=== PATIENT | female | born 1995 | race Caucasian/White ===

== ENCOUNTER 2016-12-09 00:27 | Inpatient (IN) | payer OTHER ==
[~2016-12-09] VITALS: Ht 172.7 cm; Wt 57.7 kg
[2016-12-09] VITALS (8 sets, daily range): BP systolic 101–148; BP diastolic 53–93; PULSE 60–79; TEMP 36.7–37; O2SAT 96–100; Ht 172.7 cm; Wt 57.7 kg
[~2016-12-09 00:27] MED LIST: ACET325T96 PO; BCPILLS PO; IBUP-1277 PO; UNKNOWN BP MED PO
--- NOTE | 2016-12-09 01:14 | EMERGENCY ROOM VISIT NOTE ---
History Report prepared by Nyla: Lita Camejo Under the Supervision of: Dr. Marianna Miles D.O. First contact with patient: 00:36 Chief Complaint: PALPITATIONS Stated Complaint: DIZZY,TIRED HEART,PALP History of Present Illness The patient is a 21 year old female who presents to the Emergency Room with complaints of a near syncopal episode that occurred prior to arrival. She currently rates her discomfort as a 3/10 in severity. The patient states that for the past three years she has had a history of hypertension, noting her father additionally has a history of hypertension. She states that this evening she drank three alcoholic beverages this evening and then was inline to for a bar. The patient states that she then blacked out and cannot remember the subsequent events. The patient's friends state that the patient's eyes rolled back in her head, she became pale, and she began gasping for air. The patient states that she remembers clutching her chest, but she cannot remember chest pain. The patient's friends deny the patient having any full loss of consciousness. The patient states that she now feels that her heart is tired. She states that she has had palpitations in the past, but states that her feeling in her heart feels different. The patient states that it feels like her heart ran a marathon, but she did not. The patient states that she had palpitations last evening. She denies having any warning sign prior to the episode this evening. The patient states that she has been feeling exhausted since the event. She states that it feels that her heart sank. The patient denies any history of syncopal episode. The patient's friends state that the patient's episode lasted 3-5 minutes this evening. They state that the patient did not talk for those 3-5 minutes, but then wanted to go home after the incident. The patient states that her doctors are unsure why she has hypertension at a young age. She states that she is on Lisinopril. The patient states that she has worn halter-monitors in the past. 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 The patient states that she has felt exhausted this week. She denies any nausea vomiting, abdominal pain, or diaphoresis. The patient states that her last normal menstrual cycle was one month ago and states that she is on control. Source of History: patient, friend Onset: prior to arrival Position: other (global) Symptom Intensity: 11/24 Quality: other (near syncopal episode) Associated Symptoms: No LOC, No abdominal pain, No diaphoresis, No nausea, No vomiting Note: Associated symptoms: blacked out, gasping for air, palpitations, heart feels tired. Review of Systems See HPI for pertinent positives & negatives. A total of 10 systems reviewed and were otherwise negative. Past Medical & Surgical Medical Problems: (1) Dyspnea (2) Hypertension Family History Cancer Hypertension Social History Smoking Status: Never Smoker Alcohol Use: occasionally Drug Use: none Marital Status: single Housing Status: lives with roommate Occupation Status: [employer] student Current/Historical Medications Scheduled Lisinopril (Prinivil), 10 MG PO DAILY Norethin Acet & Estrad-Fe (Minastrin 24 ), 1 TAB PO DAILY Spironolactone (Aldactone), 25 MG PO BID Allergies Coded Allergies: [place] (Verified Allergy, Intermediate, SWOLLEN FACE, 12/09/16) Physical Exam Vital Signs Date Time Temp Pulse Resp B/P Pulse Ox O2 Delivery O2 Flow Rate FiO2 12/09/16 02:25 69 16 138/98 97 Room Air 12/09/16 00:50 96 Room Air 12/09/16 00:49 65 12/09/16 00:29 36.6 70 18 159/111 99 Room Air Physical Exam HEENT: Head - normocephalic and atraumatic Pupils are equal, round, and reactive to light. Extraocular eye muscles are intact, and sclera are anicteric. Nose - moist nasal mucosa without discharge. Mouth - moist buccal mucosa. Oropharynx is nonerythematous and there is no tonsillar exudate or edema noted. Neck: Supple; no JVD, nuchal rigidity, cervical lymphadenopathy, or auscultated bruits. Heart: Regular rate and rhythm. There is a normal S1 and S2 with no murmurs, clicks, or gallops appreciated. Lungs: Clear to auscultation bilaterally with no wheezes, rales, or rhonchi. Abdomen: Soft, completely nontender, nondistended, with good bowel sounds. There are no palpable pulsatile masses or hepatosplenomegaly. There is no guarding, rigidity, or rebound noted. Extremities: No evidence of cyanosis, clubbing, or edema. There are easily palpable peripheral pulses. Skin: warm and dry with good turgor and no rashes. Medical Decision & Procedures ER Provider Diagnostic Interpretation: Chest one view x-ray interpreted by me: no cardiomegaly, no pulmonary infiltrates or effusions. Laboratory Results 12/09/16 01:08 Red Blood Count 4.56, Mean Corpuscular Volume 90.6, Mean Corpuscular Hemoglobin 33.1, Mean Corpuscular Hemoglobin Concent 36.6, Mean Platelet Volume 9.4, Neutrophils (%) (Auto) 50.0, Lymphocytes (%) (Auto) 38.7, Monocytes (%) (Auto) 6.7, Eosinophils (%) (Auto) 3.7, Basophils (%) (Auto) 0.6, Neutrophils # (Auto) 3.54, Lymphocytes # (Auto) 2.73, Monocytes # (Auto) 0.47, Eosinophils # (Auto) 0.26, Basophils # (Auto) 0.04 Test 12/09/16 01:08 12/09/16 01:20 12/09/16 01:26 White Blood Count 7.06 K/uL (4.8-10.8) Red Blood Count 4.56 M/uL (4.2-5.4) Hemoglobin 15.1 g/dL (12.0-16.0) Hematocrit 41.3 % (37-47) Mean Corpuscular Volume 90.6 fL (80-100) Mean Corpuscular Hemoglobin 33.1 pg (25-34) Mean Corpuscular Hemoglobin Concent 36.6 g/dl (32-36) Platelet Count 203 K/uL (130-400) Mean Platelet Volume 9.4 fL (7.4-10.4) Neutrophils (%) (Auto) 50.0 % Lymphocytes (%) (Auto) 38.7 % Monocytes (%) (Auto) 6.7 % Eosinophils (%) (Auto) 3.7 % Basophils (%) (Auto) 0.6 % Neutrophils # (Auto) 3.54 K/uL (1.4-6.5) Lymphocytes # (Auto) 2.73 K/uL (1.2-3.4) Monocytes # (Auto) 0.47 K/uL (0.11-0.59) Eosinophils # (Auto) 0.26 K/uL (0-0.5) Basophils # (Auto) 0.04 K/uL (0-0.2) RDW Standard Deviation 40.2 fL (36.4-46.3) RDW Coefficient of Variation 12.1 % (11.5-14.5) Immature Granulocyte % (Auto) 0.3 % Immature Granulocyte # (Auto) 0.02 K/uL (0.00-0.02) D-Dimer < 190 ug/L FEU (0-500) Total Bilirubin 0.9 mg/dl (0.2-1) Aspartate Amino Transf (AST/SGOT) 18 U/L (15-37) Alanine Aminotransferase (ALT/SGPT) 19 U/L (12-78) Alkaline Phosphatase 63 U/L (45-117) Total Creatine Kinase 92 U/L (26-192) Creatine Kinase MB 0.8 ng/ml (0.5-3.6) Creatine Kinase MB Ratio 0.9 (0-3.0) Troponin I < 0.015 ng/ml (0-0.045) Total Protein 8.0 gm/dl (6.4-8.2) Albumin 4.2 gm/dl (3.4-5.0) Globulin 3.8 gm/dl (2.5-4.0) Albumin/Globulin Ratio 1.1 (0.9-2) Thyroid Stimulating Hormone (TSH) 2.060 uIu/ml (0.300-4.500) Ethyl Alcohol mg/dL 177.0 mg/dl (0-3) Urine Color YELLOW Urine Appearance CLEAR (CLEAR) Urine pH 5.5 (4.5-7.5) Urine Specific [place] 1.003 (1.000-1.030) Urine Protein NEG (NEG) Urine Glucose (UA) NEG (NEG) Urine Ketones NEG (NEG) Urine Occult Blood NEG (NEG) Urine Nitrite NEG (NEG) Urine Bilirubin NEG (NEG) Urine Urobilinogen NEG (NEG) Urine Leukocyte Esterase NEG (NEG) Urine Test NEG (NEG) Laboratory results per my review. Medications Administered Medications (Trade) Dose Ordered Sig/Jermaine Route Start Time Stop Time Status Last Admin Dose Admin Potassium Chloride (Klor-Con M10) 40 meq NOW STAT PO 12/09/16 03:29 12/09/16 03:43 DC 12/09/16 03:53 40 MEQ ECG Indication: palpitations, syncope Rate (beats per minute): 71 Rhythm: normal sinus Findings: no acute ischemic change, no ectopy ED Course 0038: Past medical records reviewed. The patient was evaluated in room B7. A complete history and physical exam was performed. A twelve-lead EKG was obtained as described above. The patient was observed on the banana carrier and pulse oximeter. She had chest x-ray as described above. 0246: I reevaluated the patient and she is resting comfortably. I discussed the exam findings with her and I discussed the treatment plan. She verbalized complete understanding and agreement. She will be evaluated for further treatment. 0313: I discussed the patients case with MARIAELENA Sood. He is going to evaluate the patient for further treatment. Medical Decision The patient is a 21 year old female who presents to the ED with a near syncopal episode. Differential diagnosis includes cardiac dysrhythmia, near syncope, seizure, alcohol intoxication, hypoglycemia. Lab interpretation: alcohol 177, urinalysis negative, normal TSH, normal LFTs, glucose 80, cardiac enzyme negative, normal renal function, no leukocytosis, stable H&H, d-dimer less than 190. The patient presents to the emergency department after having a very sudden onset of chest pain and shortness of breath and that a near syncopal event. The patient's symptoms were quite dramatic. She gasped for air and clutched her chest complaining of chest pain. She then nearly passed out. The patient does have history of hypertension. I was concerned about the possibility of cardiac dysrhythmia. The patient was not hypoxic or tachycardic. D-dimer was negative. I discussed the case with the [facility] hospitalist and they will evaluate for further management. Consults Time Called: [phone] Consulting Physician: MARIAELENA Sood Returned Call: [phone] I discussed the patients case with MARIAELENA Sood. He is going to evaluate the patient for further treatment. Impression Primary Impression: Near syncope Additional Impressions: Atypical chest pain Palpitations Dyspnea Scribe Attestation The scribe's documentation has been prepared under my direction and personally reviewed by me in its entirety. I confirm that the note above accurately reflects all work, treatment, procedures, and medical decision making performed by me. Departure Information Dispostion Being Evaluated By Hospitalist Referrals [facility] (PCP) Problem Qualifiers
[2016-12-09] MEDS ORDERED: NORE1CHW11 PO (01:16)
[2016-12-09] MEDS ORDERED: SPIR25TA PO (01:16)
[2016-12-09] MEDS ORDERED: LISI10TA PO (01:16)
[2016-12-09 01:19] LABS: BASO % 0.6 %; BASO ABS # 0.04 K/uL (0-0.2); COMPLETE YES; EOS % 3.7 %; HEMATOCRIT 41.3 % (37-47); IG% 0.3 %; LYMPH % 38.7 %; LYMPH ABS # 2.73 K/uL (1.2-3.4); MEAN CELL VOLUME 90.6 fL (80-100); MEAN CORPUSCULAR HEMOGLOBIN 33.1 pg (25-34); MEAN CORPUSCULAR HGB CONC 36.6 g/dl (32-36); MEAN PLATELET VOLUME 9.4 fL (7.4-10.4); MONO % 6.7 %; PLATELET COUNT 203 K/uL (130-400); RED BLOOD COUNT 4.56 M/uL (4.2-5.4); WHITE BLOOD COUNT 7.06 K/uL (4.8-10.8)
[2016-12-09 01:30] LABS: URINE APPEARANCE CLEAR (CLEAR); URINE BILIRUBIN NEG (NEG); URINE COLOR YELLOW; URINE NITRITE NEG (NEG); URINE PH 5.5 (4.5-7.5); URINE SPECIFIC GRAVITY 1.003 (1.000-1.030); UROBILINOGEN NEG (NEG)
[2016-12-09 01:40] LABS: ALT/SGPT 19 U/L (12-78); AST/SGOT 18 U/L (15-37); BLOOD UREA NITROGEN 8 mg/dl (7-18); BUN/CREATININE RATIO 13.2 (10-20); CALCIUM 8.8 mg/dl (8.5-10.1); CARBON DIOXIDE 25 mmol/L (21-32); CHLORIDE 107 mmol/L (98-107); CREATININE 0.64 mg/dl (0.60-1.20); GLUCOSE 80 mg/dl (70-99); MAGNESIUM 2.2 mg/dl (1.8-2.4); POTASSIUM 3.4 mmol/L (3.5-5.1); SODIUM 142 mmol/L (136-145)
[2016-12-09 01:44] LABS: MANUAL MICROSCOPIC REQUIRED? NO; REVIEW REQ? NO
[2016-12-09 01:50] LABS: ALB/GLOB RATIO 1.1 (0.9-2); ALKALINE PHOSPHATASE 63 U/L (45-117); CKMB/CK RATIO 0.9 (0-3.0)
[2016-12-09] MEDS ORDERED: POTASSIUM CHLORIDE 10 MEQ TABCR PO STA (03:29)
[2016-12-09] MEDS ORDERED: SPIRONOLACTONE 25 MG TAB PO STA (03:44)
[2016-12-09] MEDS ORDERED: ZOLPIDEM TARTRATE 5 MG TAB PO PRN (03:45)
[2016-12-09] MEDS ORDERED: ACETAMINOPHEN 325 MG TAB PO PRN (03:45)
--- NOTE | 2016-12-09 03:57 | History and Physical ---
History & Physical Date & Time of Service: Dec 09, 2016 at 03:46 Chief Complaint: Dizzy,Tired Heart,Palp Primary Care Physician: No Doctor, Assigned History of Present Illness Source: patient, friend The patient is a 21-year-old female who presents emergency department with complaint of a near syncopal episode 3-5 minute duration that occurred while standing in line for after having had 3 alcoholic beverages. She has a known history of hypertension for which she takes spironolactone 25 mg by mouth twice a day and lisinopril 10 mg by mouth daily. She does not remember the event itself, however, her friends her with her noted that she touched her chest for 3 -5 minute interval, did not talk to them during the interval time, and when the event was over just asked that they take her home. She has not had symptoms like this in the past. She follows with a litharge mill operator in [place], who she saw 2 weeks ago. She has not had any recent illnesses or sick exposures. She reports that she drank a lot of water today, much more than usual, due to her foreknowledge of going out tonight. Past Medical/Surgical History Medical Problems: (1) Hypertension Status: Chronic Family History Cancer Hypertension Social History Smoking Status: Never Smoker Smokeless Tobacco Use: No Alcohol Use: socially Drug Use: none Marital Status: single Occupational Status: [employer] student Multi-Drug Resistant Organisms History of MDRO: No Allergies Coded Allergies: [place] (Verified Allergy, Intermediate, SWOLLEN FACE, 12/09/16) Home Medications Scheduled Lisinopril (Prinivil), 10 MG PO DAILY Norethin Acet & Estrad-Fe (Minastrin 24 ), 1 TAB PO DAILY Spironolactone (Aldactone), 25 MG PO BID Review of Systems The patient denies chest pain, cough, lower extremity swelling, vision change, hearing change, sore throat, fevers, chills, sweats, weight change, nausea, vomiting, abdominal pain, pelvic pain, blood in urine or stool, dysuria, urinary frequency or urgency, lightheadedness, dizziness, headache, rash, abnormal bruising or bleeding, imbalance, focal or generalized weakness, numbness or tingling in arms or legs, arthralgias or myalgias, back or neck pain , night sweats, or allergy symptoms. The review of systems is otherwise negative other than for that already noted above, and at least 10 systems have been reviewed. Physical Exam Vital Signs Date Time Temp Pulse Resp B/P Pulse Ox O2 Delivery O2 Flow Rate FiO2 12/09/16 02:25 69 16 138/98 97 Room Air 12/09/16 00:50 96 Room Air 12/09/16 00:49 65 12/09/16 00:29 36.6 70 18 159/111 99 Room Air The patient is awake, well-developed and adequately nourished, alert and oriented 3, normocephalic and atraumatic, lying in bed and in no acute distress. HEENT--PERRL, EOMI, mucous membranes and oropharynx mildly dry. Neck--supple, no JVD or bruits, thyroid normal, trachea midline, no adenopathy. Heart--normal S1 and S2, no extra beats, no murmurs, rubs or gallops. Lungs--clear bilaterally with good air movement, no respiratory distress, no accessory muscle use. Abdomen--normal bowel sounds and soft, nontender and nondistended, no hernias or masses, no organomegaly. Extremities--no cyanosis, clubbing or edema. There are good distal pulses b/l. Dermatologic--normal skin turgor, normal color, warm and dry, no abnormal lymph nodes, no rash. Neurologic--cranial nerves II through XII grossly intact, motor and sensory examination normal. Rheumatologic--normal range of motion, nontender, muscles and joints. Psychiatric--normal affect. Diagnostics Laboratory Results Results Past 24 Hours Test 12/09/16 01:08 12/09/16 01:20 12/09/16 01:26 Range/Units White Blood Count 7.06 4.8-10.8 K/uL Red Blood Count 4.56 4.2-5.4 M/uL Hemoglobin 15.1 12.0-16.0 g/dL Hematocrit 41.3 37-47 % Mean Corpuscular Volume 90.6 80-100 fL Mean Corpuscular Hemoglobin 33.1 25-34 pg Mean Corpuscular Hemoglobin Concent 36.6 32-36 g/dl Platelet Count 203 130-400 K/uL Mean Platelet Volume 9.4 7.4-10.4 fL Neutrophils (%) (Auto) 50.0 % Lymphocytes (%) (Auto) 38.7 % Monocytes (%) (Auto) 6.7 % Eosinophils (%) (Auto) 3.7 % Basophils (%) (Auto) 0.6 % Neutrophils # (Auto) 3.54 1.4-6.5 K/uL Lymphocytes # (Auto) 2.73 1.2-3.4 K/uL Monocytes # (Auto) 0.47 0.11-0.59 K/uL Eosinophils # (Auto) 0.26 0-0.5 K/uL Basophils # (Auto) 0.04 0-0.2 K/uL RDW Standard Deviation 40.2 36.4-46.3 fL RDW Coefficient of Variation 12.1 11.5-14.5 % Immature Granulocyte % (Auto) 0.3 % Immature Granulocyte # (Auto) 0.02 0.00-0.02 K/uL Sodium Level 142 136-145 mmol/L Potassium Level 3.4 3.5-5.1 mmol/L Chloride Level 107 98-107 mmol/L Carbon Dioxide Level 25 21-32 mmol/L Anion Gap 10.0 3-11 mmol/L Blood Urea Nitrogen 8 7-18 mg/dl Creatinine 0.64 0.60-1.20 mg/dl Est Creatinine Clear Calc Drug Dose 125.6 ml/min Estimated GFR () 146.8 Estimated GFR (Non- 126.7 BUN/Creatinine Ratio 13.2 10-20 Random Glucose 80 70-99 mg/dl Calcium Level 8.8 8.5-10.1 mg/dl Magnesium Level 2.2 1.8-2.4 mg/dl Total Bilirubin 0.9 0.2-1 mg/dl Aspartate Amino Transf (AST/SGOT) 18 15-37 U/L Alanine Aminotransferase (ALT/SGPT) 19 12-78 U/L Alkaline Phosphatase 63 45-117 U/L Total Creatine Kinase 92 26-192 U/L Creatine Kinase MB 0.8 0.5-3.6 ng/ml Creatine Kinase MB Ratio 0.9 0-3.0 Troponin I < 0.015 0-0.045 ng/ml Total Protein 8.0 6.4-8.2 gm/dl Albumin 4.2 3.4-5.0 gm/dl Globulin 3.8 2.5-4.0 gm/dl Albumin/Globulin Ratio 1.1 0.9-2 Thyroid Stimulating Hormone (TSH) 2.060 0.300-4.500 uIu/ml Ethyl Alcohol mg/dL 177.0 0-3 mg/dl Urine Color YELLOW Urine Appearance CLEAR CLEAR Urine pH 5.5 4.5-7.5 Urine Specific [place] 1.003 1.000-1.030 Urine Protein NEG NEG Urine Glucose (UA) NEG NEG Urine Ketones NEG NEG Urine Occult Blood NEG NEG Urine Nitrite NEG NEG Urine Bilirubin NEG NEG Urine Urobilinogen NEG NEG Urine Leukocyte Esterase NEG NEG Urine Test NEG NEG EKG EKG shows normal sinus rhythm with sinus arrhythmia at 71 bpm, right superior axis deviation, no acute ST-T changes. Impression Assessment and Plan Near syncope--symptoms are most consistent with that of an abnormal heart rhythm. She'll be admitted to telemetry unit, for serial cardiac enzymes, cardiac rhythm monitoring and a 2-D echocardiogram with Dopplers. The patient is also on oral contraceptives. I have asked the ED to add a d-dimer to present labs, and if elevated, will necessitate a CT angiography to assess for PE. Aldosteronism/hypertension/hypokalemia--potassium level upon entry is 3.4, and magnesium 2.2. Hold lisinopril 10 mg by mouth daily. We'll give potassium chloride 40 mEq by mouth now, and spironolactone 50 mg by mouth now. We will adjust her baseline dose of spironolactone from 25 mg by mouth twice a day to 50 mg by mouth twice a day. We'll also place on normal saline with potassium chloride 20 mEq at 100 ML's per hour for 1 L. We'll repeat BMP and magnesium level in 8 hours. Level of Care Telemetry Advanced Directives Existing Advance Directive: No Existing Living Will: No Existing Power of Salon Designer: No Resuscitation Status FULL RESUSCITATION VTE Prophylaxis VTE Risk Assessment Done? Y/N: Yes Risk Level: Low Social Service Consult None Apply
[2016-12-09] MEDS: NSS + 20MEQ KCL 1000ML 1,000 ML IV SCH ×2 (04:42→14:21)
--- NOTE | 2016-12-09 07:53 | DIAGNOSTIC IMAGING REPORT ---
SINGLE VIEW CHEST CLINICAL HISTORY: Palpitations. Fatigue. FINDINGS: An AP, portable, upright chest radiograph is obtained. No prior studies are available for comparison at the time of dictation. The examination is mildly degraded by portable technique and patient rotation. The cardiomediastinal silhouette is unremarkable. The lungs and pleural spaces are clear. No pneumothorax is seen. The bony thorax is grossly intact. IMPRESSION: No active disease in the chest. Electronically signed by: Duane Stone M.D. 12/09/2016 7:52 AM Dictated Date/Time: 12/09/2016 7:51 AM
[2016-12-09] MEDS: BCP'S~ORDER AWAITING ACTION SCH ×2 (08:00→16:00)
[2016-12-09] MEDS ORDERED: ASPIRIN 81 MG ECTAB PO SCH (09:00)
[2016-12-09] MEDS ORDERED: INFLUENZA ADMINISTRATION CHARGE ONE (10:15)
[2016-12-09] MEDS ORDERED: INFLUENZA VIRUS QUAD VACCINE 0.5 ML SYR IM. ONE (10:15)
[2016-12-09 11:41] LABS: BUN/CREATININE RATIO 14.1 (10-20); CALCIUM 8.5 mg/dl (8.5-10.1); CREATININE 0.71 mg/dl (0.60-1.20); MAGNESIUM 1.9 mg/dl (1.8-2.4); POTASSIUM 4.2 mmol/L (3.5-5.1)
--- NOTE | 2016-12-09 13:06 | CARDIOLOGY CONSULTATION ---
DATE OF CONSULTATION: 12/09/2016 DATE OF CONSULTATION: 12/09/2016. REQUESTING: Dr. Day. INFORMATION TECHNOLOGY TECHNICIAN: Loco Haley D.O., [facility]. REASON FOR CONSULTATION: Possible syncopal episode. Dear Dr. Day, As you know, she is a very pleasant 21-year-old female who notes that the age of 19 she was diagnosed with hypertension. She is unaware whether she has hyperaldosteronism and neither was her mother when I talked to her by phone but given the fact she has low potassium and she is on spironolactone would suggest that as a diagnosis. I did inquire as to whether she had extensive workup and the mom describes she had a workup with pediatric nephrology and now sees an adult director of women's services in [place]. She notes yesterday was a friend's birthday. She tries to stay well hydrated. She notes she constantly feels thirsty though and she notes on the day that she is going to go out she tends not to take her blood pressure medication. She notes she had been drinking a moderate amount, her blood alcohol level when she came to the Emergency Room was 0.177. She notes she was standing in line with her friends, all of sudden without any significant prodrome her eyes rolled in the back of her head. What is interesting is that she did not lose postural tone, she did not fall to the floor, her friends were with her, she did not have any seizure like activity according to her friends and then the symptoms completely resolved. She remembers everything that happened up until the event and she remembers everything that happened after the event. There was no loss of bowel or bladder function. There was no biting her tongue. She is unaware of any palpitations before the episode. She denied any tunnel vision, nauseousness, queasiness to suggest neurocardiogenic syncope. She went home and after some concern by her friends and her mother she came to the Emergency Room. Her blood pressure was very high as she had not taken her medications. She describes earlier in the week having an episode where she was sitting and she sort of describes a sensation in her chest where someone was squeezing an empty ketchup bottle. She also describes a sensation where she feels like her heart sort of drops in her chest and she described that yesterday as well. She denies any chest pain, chest pressure, chest heaviness with normal activity. She is an avid runner running 2-4 miles and is able to do this without any issues. She denies any previous episodes of syncope. She notes she might have a recent illnesses, but outside of that she feels well. She denies any bleeding, bruising, dark stools, black stools, PND, orthopnea. She denies any significant shortness of breath with activity and describes her functional capacity as stable. The rest of review of systems otherwise negative. PAST MEDICAL HISTORY: Hypertension, likely hyperaldosteronism. FAMILY HISTORY: Her dad has hypertension, but there is no family history of sudden cardiac or unexplained car accidents or drowning. SOCIAL HISTORY: She is a lifetime nonsmoker. She does consume alcohol socially. She is a senior at [employer]. She denies any use of Sudafed, Afrin nasal spray, cocaine or any kind of drugs ever. ALLERGIES: PEACHES. OUTPATIENT MEDICATIONS: Include Prinivil 10 mg daily, control and Aldactone 25 mg b.i.d. PHYSICAL EXAMINATION: GENERAL: She is awake, alert, oriented x3. She is in no acute distress. She is a well-appearing female who looks her stated age. VITAL SIGNS: Her heart rate is 75, respirations 16, blood pressure 101/53, her sats 96% on room air. Her initial blood pressure in the ER was 159/111. Her sat was normal at 99%. HEAD, EYES, EARS, NOSE, AND THROAT: 2+ carotid upstrokes. No evidence of carotid bruits. Jugular venous pressure appeared normal. Her sclerae is anicteric. Her hearing is normal. LUNGS: Clear to auscultation bilaterally. No rales, rhonchi or wheezing. HEART: Regular rate and rhythm. No appreciable murmurs, rubs or gallops. ABDOMEN: Soft, nontender, nondistended, positive bowel sounds. EXTREMITIES: No clubbing, cyanosis or edema. PSYCHIATRIC: Affect appeared appropriate. NEUROLOGIC: She is awake, alert and oriented x3. LABORATORY STUDIES: Sodium 142, potassium 4.2, BUN 8, creatinine 0.64. TSH is normal. AST and ALT are normal. Her CBC was normal. Her alcohol level was 0.177 and her urine was negative. FINANCIAL PLANNING ADVISER normal sinus rhythm with sinus arrhythmia. EKG normal sinus rhythm with sinus arrhythmia, right-sided IVCD, left axis deviation. Chest x-ray normal. IMPRESSION: 1. A 5-minute period where her eyes rolled in the back of her head. 2. Sensation of feeling her heart drop in her chest. 3. Premature hypertension, what sounds like hyperaldosteronism. As I discussed with Barbara and her mother as well as the primary service, it is not completely clear what this episode was. It would be unusual to maintain postural tone if one was to think that this was orthostatic hypotension or a vasovagal event and if it was an arrhythmia that would cause her eyes to roll in the back of her head suggesting a bradyarrhythmia or a pause one would expect her to fall to the ground losing postural tone and that did not occur. On the day she does drink, she does not take her blood pressure medicine, this would be the reason for her elevated blood pressure in addition the stress of the actual event will increase her catecholamines which will raise her blood pressure. So far on the monitor all she is sinus rhythm with sinus arrhythmia. At this point, we will obtain an echocardiogram. Assuming it is normal as her exam is normal at that point I would suggest an outpatient event recorder for which we can hook her up on Sunday in the office to rule out any significant arrhythmias. I do not think this was a seizure either. As I discussed with her mom with a normal heart the chance of this being something bad is incredibly small. There is nothing on her EKG to suggest Brugada syndrome. Her QT is top normal for her age. Thank you for allowing us to participate in her are. We will continue to follow her. RALPH
--- NOTE | 2016-12-09 15:25 | ECHOCARDIOGRAM REPORT ---
*NOTICE TO RECEIVING CONSTITUTION PARTY AGENCY This information is strictly Confidential and protected under [place] law. [place] law prohibits you from making any further disclosure of this information unless further disclosure is expressly permitted by the written consent of the person to whom it pertains or is authorized by law. A general authorization for the release of medical or other information is not sufficient for this purpose. Hospital accepts no responsibility if the information is made available to any other person, INCLUDING THE PATIENT. Interpretation Summary * Name: RISHI ACUNA Study Date: 12/09/2016 01:28 PM BP: 138/93 mmHg * Patient Location: [facility]\S\N278\S\2 HR: 73 * : 1995 (M/d/yyyy) Gender: Female Height: 68 in * Age: 21 yrs Ethnicity: CA Weight: 127 lb * Ordering Physician: Lalo Dougherty * Performed By: Rohini Ta RDCS * * Reason For Study: Syncope * BSA: 1.7 m2 * -- Conclusions -- * The left ventricle is normal in size. * Ejection Fraction = 65-70%. * Left ventricular systolic function is normal. * The right ventricle is normal in size and function. * Normal diastolic function with normal E to e' ratio and normal e' velocities * No evidence of coarctation. Procedure Details * A complete two-dimensional transthoracic echocardiogram was performed (2D, M-mode, Doppler and color flow Doppler). Left Ventricle * The left ventricle is normal in size. * There is normal left ventricular wall thickness. * Ejection Fraction = 65-70%. * Left ventricular systolic function is normal. * No segmental left ventricular wall motion abnormalities are noted. * False tendon in the LV apex. Right Ventricle * The right ventricle is normal in size and function. Atria * The left atrial size is normal. * Right atrial size is normal. Mitral Valve * The mitral valve is grossly normal. Tricuspid Valve * The tricuspid valve is normal. Aortic Valve * The aortic valve is trileaflet. Pulmonic Valve * The pulmonic valve is not well seen, but is grossly normal. Great Vessels * The aortic root is normal size. Pericardium/Pleural * There is no pericardial effusion. Great Vessels * Normal inferior vena cava size and collapsability with sniff indicates a normal right atrial pressure of 3 mmHg Left Ventricular Diastolic Function * Normal diastolic function with normal E to e' ratio and normal e' velocities No evidence of coarctation. MMode 2D Measurements and Calculations IVSd 0.64 cm LVIDd 5.0 cm LVIDs 3.0 cm LVPWd 0.81 cm IVS/LVPW 0.80 FS 41.0 % EDV(Teich) 120.6 ml ESV(Teich) 34.3 ml EF(Teich) 71.5 % EDV(cubed) 128.3 ml ESV(cubed) 26.4 ml EF(cubed) 79.4 % LV mass(C)d 121.6 grams LV mass(C)dI 72.1 grams/m\S\2 CO(Teich) 4.9 l/min CI(Teich) 2.9 l/min/m\S\2 SV(Teich) 86.3 ml SI(Teich) 51.2 ml/m\S\2 CO(cubed) 5.8 l/min CI(cubed) 3.4 l/min/m\S\2 SV(cubed) 101.9 ml SI(cubed) 60.5 ml/m\S\2 Ao root diam 2.6 cm Ao root area 5.5 cm\S\2 ACS 1.8 cm LA dimension 2.7 cm asc Aorta Diam 2.5 cm LA/Ao 1.0 LVOT diam 2.0 cm LVOT area 3.2 cm\S\2 LVAd ap4 31.8 cm\S\2 LVLd ap4 8.3 cm EDV(MOD-sp4) 103.0 ml LVAs ap4 15.7 cm\S\2 LVLs ap4 6.2 cm ESV(MOD-sp4) 34.6 ml EF(MOD-sp4) 66.4 % LVAd ap2 26.3 cm\S\2 LVLd ap2 8.2 cm EDV(MOD-sp2) 71.3 ml LVAs ap2 13.9 cm\S\2 LVLs ap2 7.0 cm ESV(MOD-sp2) 22.9 ml EF(MOD-sp2) 67.9 % CO(MOD-sp4) 3.9 l/min CI(MOD-sp4) 2.3 l/min/m\S\2 SV(MOD-sp4) 68.4 ml SI(MOD-sp4) 40.6 ml/m\S\2 CO(MOD-sp2) 2.8 l/min CI(MOD-sp2) 1.6 l/min/m\S\2 SV(MOD-sp2) 48.4 ml SI(MOD-sp2) 28.7 ml/m\S\2 Doppler Measurements and Calculations MV E max erlinda 110.6 cm/sec MV A max erlinda 45.1 cm/sec MV E/A 2.5 MV dec time 0.19 sec Ao V2 max 160.2 cm/sec Ao max PG 10.3 mmHg Ao max PG (full) 3.6 mmHg JESSICA(V,A) 2.6 cm\S\2 JESSICA(V,D) 2.6 cm\S\2 LV V1 max PG 6.7 mmHg LV V1 max 129.0 cm/sec PA V2 max 120.8 cm/sec PA max PG 5.8 mmHg PA acc slope 560.9 cm/sec\S\2 PA acc time 0.15 sec PI max erlinda 130.3 cm/sec PI max PG 6.8 mmHg PI dec slope 107.9 cm/sec\S\2 PI P1/2t 353.6 msec PA pr(Accel) 12.5 mmHg
--- NOTE | 2016-12-09 17:58 | Discharge Instructions ---
Discharge Instructions Date of Service Dec 09, 2016. Admission Reason for Admission: Dyspnea, Near Syncope Discharge Discharge Diagnosis / Problem: Near syncope Discharge Goals Goal(s): Improve disease control Activity Recommendations Activity Limitations: resume your previous activity . Instructions / Follow-Up Instructions / Follow-Up Dr. Haley on Sunday for event monitor consideration Current Hospital Diet Patient's current hospital diet: Regular Diet Discharge Diet Recommended Diet: Regular Diet Pending Studies Studies pending at discharge: no Medical Emergencies . Who to Call and When: Medical Emergencies: If at any time you feel your situation is an emergency, please call 911 immediately. . Non-Emergent Contact Non-Emergency issues call your: Primary Care Provider . . "Provider Documentation" section prepared by Lalo Dougherty. VTE Core Measure Inpt VTE Proph given/why not?: Treatment not indicated
[2016-12-09] MEDS ORDERED: SPIRONOLACTONE 25 MG TAB PO SCH (18:00)
--- NOTE | 2016-12-18 14:55 | DISCHARGE SUMMARY ---
BRIEFLY: The patient is a 21-year-old college student presented with 35 minutes of near syncopal event after having had 3 alcoholic beverages. She has known history of hypertension, takes spironolactone 25 mg twice a day and lisinopril 10 mg daily. She did not recall the event and presented to the Emergency Room for near syncope. Potassium was 3.4, magnesium was 2.2. She was found to have uncontrolled hypertension. Dr. Haley was consulted for cardiology. Echocardiogram was performed. Left ventricle was found to be normal in size. Normal wall thickness, EF of 65-70%. Dr. Haley will see the patient as an outpatient on Sunday and suggested an outpatient event recorder to rule out any significant arrhythmias, seizure is unlikely since the patient did not lose postural tone. I discussed with the patient combination of alcohol consumption, high blood pressure that was uncontrolled because she does not take her medications when she goes out to drink most likely played a role in her presenting symptoms. Chest x-ray showed no active disease. Time spent in review of the chart and discussion with the patient on the date of discharge - 35 minutes.
== END 2016-12-09 18:31 | disposition home or self-care (01) | DRG 312 ==
LOC: ENRESERVDT → ENRESERVTM → C.EDB 00:29 → C.MED 03:31
PROVIDERS: ADMIT Hospitalist; ATTEND Hospitalist
DX: R55 Syncope and collapse (principal); I10 Essential (primary) hypertension; E26.9 Hyperaldosteronism, unspecified; E87.6 Hypokalemia; Z79.3 Long term (current) use of hormonal contraceptives; Z79.899 Other long term (current) drug therapy